=== PATIENT | male | born 1940 | race Hispanic/Latino ===

== ENCOUNTER 2021-04-23 08:05 | Outpatient (CLI) | payer MEDICARE, OTHER | END 2021-04-23 08:06 | disposition home or self-care (01) | LOC: BICMRI 08:05 | PROVIDERS: ATTEND Neurological Surgery | DX: M47.26 Other spondylosis with radiculopathy, lumbar region (principal); M48.061 Spinal stenosis, lumbar region without neurogenic claudication; M47.814 Spondylosis without myelopathy or radiculopathy, thoracic region; M43.16 Spondylolisthesis, lumbar region | CPT/HCPCS: 72148 ==

== ENCOUNTER 2021-06-10 13:58 | Emergency (ER) | payer MEDICARE, OTHER ==
[2021-06-10] MEDS ORDERED: Ketorolac Tromethamine 30 MG/ML VIAL ONE (15:07)
== END 2021-06-10 15:55 | disposition home or self-care (01) ==
LOC: ERS 13:58
DX: M54.41 Lumbago with sciatica, right side (principal); M25.551 Pain in right hip; G89.29 Other chronic pain; E11.9 Type 2 diabetes mellitus without complications; E78.5 Hyperlipidemia, unspecified; I10 Essential (primary) hypertension; Z79.899 Other long term (current) drug therapy; Z79.84 Long term (current) use of oral hypoglycemic drugs
CPT/HCPCS: 96372; 99283; J1885

== ENCOUNTER 2022-09-15 16:26 | Observation (INO) | payer MEDICARE, OTHER ==
[2022-09-15 16:48] LABS: #Basophils 0.1 thou/uL (0.0-0.2); #Eosinphils 1.6 thou/uL (0.0-0.7); #Lymphocytes 2.4 thou/uL (1.20-3.40); #Monocytes 0.6 thou/uL (0.11-0.59); #Neutrophils 5.7 thou/uL (1.40-6.50); %Basophils 0.5 % (0.0-1.0); %Eosinophils 15.1 % (0.0-10.0); %Lymphocytes 23.4 % (21.0-51.0); %Monocytes 6.2 % (0.0-10.0); %Neutrophils 54.8 % (42.0-75.0); Hemoglobin 13.7 g/dL (14.0-18.0); Mean Corpuscular HGB CONC 33.8 g/dL (32.0-36.0); Mean Corpuscular Hemoglobin 29.9 pg (27.0-31.0); Mean Corpuscular Volume 88.5 fl (78.0-98.0); Mean Platelet Volume 7.4 fL (7.4-10.4); Platelet Count 275 10x3/uL (130-400); RBC Distribution Width 11.3 % (11.5-14.5); Red Blood Cell (RBC) Count 4.59 mill/uL (4.70-6.10); White Blood Cell (WBC) Count 10.3 10x3/uL (4.8-10.8)
[2022-09-15] MEDS ORDERED: Aspirin 325 MG TAB ONE (16:57)
[2022-09-15 17:17] LABS: ALT (SGPT) 11 U/L (8-55); AST (SGOT) 17 U/L (5-34); Albumin 4.9 g/dL (3.4-4.8); Alkaline Phosphatase 109 U/L (40-110); Anion Gap 13 mmol/L (10-20); BUN (Urea Nitrogen) 14 mg/dL (8.4-25.7); Bilirubin, Total 0.5 mg/dL (0.2-1.2); Calc. Creatinine Clearance 0 mL/min (70-130); Calcium 9.8 mg/dL (7.8-10.44); Carbon Dioxide 27 mmol/L (23-31); Chloride 101 mmol/L (98-107); Estimated GFR 63; Globulin 3.7 g/dL (2.4-3.5); Glucose 130 mg/dL (83-110); Potassium 4.1 mmol/L (3.5-5.1); Protein, Total 8.6 g/dL (5.8-8.1); Sodium 137 mmol/L (136-145)
[2022-09-15] MEDS ORDERED: Dextrose 5% in Water 1,000 ML IV PRN (18:31)
[2022-09-15] MEDS ORDERED: Ondansetron PF 4 MG/2 ML Vial IVP PRN (18:31)
[2022-09-15] MEDS ORDERED: Acetaminophen 325 MG TAB PO PRN (18:31)
[2022-09-15] MEDS ORDERED: Insulin Regular 300 UNITS/3 ML VIAL SC PRN ×2 (18:31)
[2022-09-15] MEDS ORDERED: Dextrose 50% Abboject 50 ML SYRINGE SLOW IVP PRN (18:31)
[2022-09-15] MEDS ORDERED: Nitroglycerin 0.4 MG TAB (25 Tab Bottle) SL PRN (18:31)
[2022-09-15] MEDS ORDERED: Ondansetron ODT 4 MG TAB PO PRN (18:31)
[2022-09-15 19:04] LABS: Magnesium 1.7 mg/dL (1.6-2.6); Phosphorus 3.4 mg/dL (2.3-4.7)
[2022-09-15] MEDS ORDERED: Rosuvastatin 10 MG TAB PO SCH (21:00)
[2022-09-15 21:07] LABS: Troponin I 0.013 ng/mL (< 0.028)
[2022-09-15 21:23] VITALS: BMI 20.2
[2022-09-15] MEDS: Gabapentin 100 MG CAP PO SCH (21:44)
[2022-09-15 22:51] LABS: Troponin I 0.015 ng/mL (< 0.028)
[2022-09-16 04:53] LABS: #Eosinphils 1.4 thou/uL (0.0-0.7); #Lymphocytes 1.5 thou/uL (1.20-3.40); #Monocytes 0.6 thou/uL (0.11-0.59); #Neutrophils 5.6 thou/uL (1.40-6.50); %Basophils 0.3 % (0.0-1.0); %Eosinophils 14.9 % (0.0-10.0); %Lymphocytes 16.3 % (21.0-51.0); %Monocytes 6.6 % (0.0-10.0); %Neutrophils 61.9 % (42.0-75.0); Hemoglobin 11.8 g/dL (14.0-18.0); Mean Corpuscular HGB CONC 33.7 g/dL (32.0-36.0); Mean Corpuscular Hemoglobin 29.8 pg (27.0-31.0); Mean Corpuscular Volume 88.5 fl (78.0-98.0); Mean Platelet Volume 7.5 fL (7.4-10.4); Platelet Count 240 10x3/uL (130-400); RBC Distribution Width 11.2 % (11.5-14.5); Red Blood Cell (RBC) Count 3.98 mill/uL (4.70-6.10); White Blood Cell (WBC) Count 9.1 10x3/uL (4.8-10.8)
[2022-09-16 05:19] LABS: Anion Gap 10 mmol/L (10-20); BUN (Urea Nitrogen) 13 mg/dL (8.4-25.7); Calc. Creatinine Clearance 49 mL/min (70-130); Calcium 8.8 mg/dL (7.8-10.44); Carbon Dioxide 24 mmol/L (23-31); Cardiac Risk 2.6 (Less than 4.5); Chloride 105 mmol/L (98-107); Cholesterol 95 mg/dl (< 200 Desired); Estimated GFR 77; Glucose 128 mg/dL (83-110); HDL Cholesterol 37 mg/dL (>60 Neg Risk); LDL Cholesterol, Calculated 43 mg/dL; Sodium 135 mmol/L (136-145); Triglycerides 73 mg/dL (Less than 150)
[2022-09-16] MEDS ORDERED: Lisinopril/Hydrochlorothiazide 20 mg/12.5 mg Tablet PO SCH (09:00)
[2022-09-16] MEDS ORDERED: Aspirin Chewable 81 MG TAB PO SCH (09:00)
[2022-09-16] MEDS ORDERED: Finasteride 5 MG TAB PO SCH (09:00)
[2022-09-16] MEDS ORDERED: Tamsulosin HCl 0.4 MG CAP PO SCH (09:00)
[2022-09-16] MEDS: metFORMIN 500 MG TAB PO SCH ×2 (12:27→18:03)
[2022-09-16] MEDS: Gabapentin 100 MG CAP PO SCH (12:28)
[2022-09-16] MEDS ORDERED: ADENOSINE 60 MG/20 ML VIAL ONE (13:48)
[2022-09-16 16:38] VITALS: BP 136/68; TEMP 98.7
[2022-09-16] MEDS ORDERED: traMADol HCl 50 MG TAB PO PRN (16:39)
[2022-09-16] MEDS ORDERED: LACTASE 3000 UNIT PO PRN (16:39)
== END 2022-09-16 18:38 | disposition home or self-care (01) ==
LOC: ERS 16:26 → ERHOLD 17:45 → 2SW 20:34
PROVIDERS: ADMIT Family Medicine; ATTEND Nurse Practitioner Family
DX: R07.9 Chest pain, unspecified (principal); E11.42 Type 2 diabetes mellitus with diabetic polyneuropathy; I10 Essential (primary) hypertension; E78.5 Hyperlipidemia, unspecified; H61.23 Impacted cerumen, bilateral; I25.10 Atherosclerotic heart disease of native coronary artery without angina pectoris; G89.29 Other chronic pain; M54.50 Low back pain, unspecified; K52.9 Noninfective gastroenteritis and colitis, unspecified; H90.5 Unspecified sensorineural hearing loss; I34.0 Nonrheumatic mitral (valve) insufficiency; Z79.82 Long term (current) use of aspirin; Z79.84 Long term (current) use of oral hypoglycemic drugs; Z79.899 Other long term (current) drug therapy; Z88.8 Allergy status to other drugs, medicaments and biological substances; Z95.1 Presence of aortocoronary bypass graft; Z20.822 Contact with and (suspected) exposure to COVID-19
CPT/HCPCS: 71046; 78452; 80048; 80053; 80061; 82962 ×2; 83735; 83880; 84100; 84484 ×2; 85025 ×2; 93005; 93017; 93306; 94760 ×2; 99285; A9500; U0003; U0005; 36415; 36416; G0378; J0153

== ENCOUNTER 2023-04-26 10:01 | Outpatient (CLI) | payer MEDICARE, OTHER | END 2023-04-26 10:02 | disposition home or self-care (01) | LOC: BICMRI 10:01 | PROVIDERS: ATTEND Neurological Surgery | DX: M47.12 Other spondylosis with myelopathy, cervical region (principal); M43.16 Spondylolisthesis, lumbar region; M46.06 Spinal enthesopathy, lumbar region; M47.816 Spondylosis without myelopathy or radiculopathy, lumbar region; M51.36 Other intervertebral disc degeneration, lumbar region; M48.061 Spinal stenosis, lumbar region without neurogenic claudication; M25.78 Osteophyte, vertebrae; M24.28 Disorder of ligament, vertebrae; M51.37 Other intervertebral disc degeneration, lumbosacral region; M48.07 Spinal stenosis, lumbosacral region; M43.12 Spondylolisthesis, cervical region; M43.13 Spondylolisthesis, cervicothoracic region; M50.01 Cervical disc disorder with myelopathy, high cervical region; M48.02 Spinal stenosis, cervical region; M43.22 Fusion of spine, cervical region; M50.021 Cervical disc disorder at C4-C5 level with myelopathy; M50.022 Cervical disc disorder at C5-C6 level with myelopathy; M50.023 Cervical disc disorder at C6-C7 level with myelopathy; M50.83 Other cervical disc disorders, cervicothoracic region; M48.03 Spinal stenosis, cervicothoracic region; R90.89 Other abnormal findings on diagnostic imaging of central nervous system | CPT/HCPCS: 72141; 72148 ==

== ENCOUNTER 2023-08-08 13:12 | Outpatient (CLI) | payer MEDICARE, OTHER ==
[2023-08-08 15:07] LABS: Hematocrit 35.9 % (38.8-50.0); Mean Corpuscular HGB CONC 33.4 g/dL (32.0-36.0); Mean Corpuscular Hemoglobin 29.3 pg (27.0-33.0); Mean Corpuscular Volume 87.8 fl (81.2-95.1); Mean Platelet Volume 10.1 fl (7.4-10.4); Platelet Count 266 10x3/uL (150-450); RBC Distribution Width 12.1 % (11.5-14.5); Red Blood Cell (RBC) Count 4.09 10x6/uL (4.32-5.72); White Blood Cell (WBC) Count 8.9 10x3/uL (3.5-10.5)
[2023-08-08 15:17] LABS: Anion Gap 16 mmol/L (10-20); BUN (Urea Nitrogen) 17 mg/dL (8.4-25.7); Calc. Creatinine Clearance 0 mL/min (70-130); Calcium 9.2 mg/dL (7.8-10.44); Carbon Dioxide 25 mmol/L (23-31); Chloride 102 mmol/L (98-107); Estimated GFR 63; Glucose 131 mg/dL (83-110); Potassium 4.1 mmol/L (3.5-5.1); Sodium 139 mmol/L (136-145)
== END 2023-08-08 13:13 | disposition home or self-care (01) ==
LOC: LABBT 13:12
PROVIDERS: ATTEND Neurological Surgery
DX: Z01.818 Encounter for other preprocedural examination (principal)
CPT/HCPCS: 80048; 85027; 93005; 93010

== ENCOUNTER 2023-08-14 06:35 | Observation (INO) | payer MEDICARE, OTHER ==
[2023-08-08 13:11] VITALS: BMI 19.8
[2023-08-14] MEDS ORDERED: Vancomycin 1 GM VIAL ONE (06:37)
[2023-08-14] MEDS ORDERED: Promethazine 25 MG TAB PO PRN (06:56)
[2023-08-14] MEDS ORDERED: Ondansetron PF 4 MG/2 ML Vial IVP PRN (06:56)
[2023-08-14] MEDS ORDERED: Acetaminophen 325 MG TAB PO PRN (06:56)
[2023-08-14] MEDS ORDERED: Mag-Al 1200 mg/1200 mg/30 ML UDCUP PO PRN (06:56)
[2023-08-14] MEDS ORDERED: Cyclobenzaprine 10 MG TAB PO PRN (06:56)
[2023-08-14] MEDS ORDERED: Milk Of Magnesia 30 ML UDCUP PO PRN (06:56)
[2023-08-14] MEDS ORDERED: diphenhydrAMINE 50 MG/ML VIAL IVP PRN (06:56)
[2023-08-14] MEDS ORDERED: Morphine 2 MG/ML VIAL SLOW IVP PRN (06:56)
[2023-08-14] MEDS ORDERED: traMADol HCl 50 MG TAB PO PRN (06:56)
[2023-08-14] MEDS ORDERED: Dexamethasone 4 mg/ml Vial ONE (07:09)
[2023-08-14] MEDS ORDERED: fentaNYL PF 100 MCG/2 ML SYRINGE ONE (07:09)
[2023-08-14] MEDS ORDERED: Rocuronium Bromide 10 MG/ML (10ML VIAL) ONE ×2 (07:09→07:43)
[2023-08-14] MEDS ORDERED: PROPOFOL 20 ML ONE (07:09)
[2023-08-14] MEDS ORDERED: Lidocaine 2% PF 5 ML VIAL ONE (07:09)
[2023-08-14] MEDS ORDERED: CEFAZOLIN 2 GM VIAL ONE (07:23)
[2023-08-14] MEDS ORDERED: Sodium Chloride 0.9% 100 ML ONE (07:23)
[2023-08-14] MEDS ORDERED: SUGAMMADEX SODIUM 200 MG/2 ML VIAL ONE (07:25)
[2023-08-14] MEDS ORDERED: Dexamethasone 20 MG/5 ML VIAL ONE (07:43)
[2023-08-14] MEDS ORDERED: Ondansetron PF 4 MG/2 ML Vial ONE (07:43)
[2023-08-14] MEDS ORDERED: Lidocaine 1% PF 5 ML VIAL ONE (07:43)
[2023-08-14] MEDS ORDERED: PROPOFOL 200 MG/20 ML VIAL ONE (07:43)
[2023-08-14] MEDS ORDERED: HYDROmorphone 2 MG/ML VIAL SLOW IVP PRN (08:27)
[2023-08-14] MEDS ORDERED: Ondansetron HCl/PF 4 MG/2 ML Vial IVP PRN (08:27)
[2023-08-14] MEDS ORDERED: Promethazine HCl 25 MG/ML VIAL IM PRN (08:27)
[2023-08-14] MEDS ORDERED: fentaNYL 50 mcg/mL 1 mL Vial ONE ×3 (09:14→09:40)
[2023-08-14] MEDS: HYDROcodone/Acetaminophen 10/325 mg Tablet PO PRN ×3 (11:18→20:29)
[2023-08-14] MEDS: Sodium Chloride 0.9% 1,000 ML IV SCH ×2 (11:19→20:36)
[2023-08-14] MEDS: Lisinopril 20 MG TAB PO SCH (11:48)
[2023-08-14] MEDS: metFORMIN 500 MG TAB PO SCH ×2 (11:49→17:13)
[2023-08-14] MEDS: Finasteride 5 MG TAB PO SCH (11:49)
[2023-08-14] MEDS: Hydrochlorothiazide 25 MG TAB PO SCH (11:49)
[2023-08-14] MEDS: Gabapentin 100 MG CAP PO SCH ×2 (11:52→22:31)
[2023-08-14] MEDS: Tamsulosin HCl 0.4 MG CAP PO SCH (11:52)
[2023-08-14] MEDS: Carvedilol 6.25 MG TAB PO SCH ×2 (11:52→17:13)
[2023-08-14] MEDS ORDERED: hydrALAZINE 20 MG/ML VIAL SLOW IVP PRN (12:43)
[2023-08-14] MEDS ORDERED: Labetalol HCl 100 MG/20 ML VIAL SLOW IVP PRN (12:43)
[2023-08-14] MEDS: Colestipol 1 GM TAB PO SCH ×2 (13:41→22:32)
[2023-08-14] MEDS ORDERED: CEFAZOLIN 2 GM in Sodium Chloride 0.9% 100 ML IVPB SCH (16:00)
[2023-08-14] MEDS: CEFAZOLIN 2 GM in Sodium Chloride 0.9% 100 ML IVPB SCH (16:11)
[2023-08-15] MEDS: CEFAZOLIN 2 GM in Sodium Chloride 0.9% 100 ML IVPB SCH (00:24)
[2023-08-15] MEDS: HYDROcodone/Acetaminophen 10/325 mg Tablet PO PRN ×3 (05:32→16:53)
[2023-08-15] MEDS: Finasteride 5 MG TAB PO SCH (08:36)
[2023-08-15] MEDS: Gabapentin 100 MG CAP PO SCH (08:36)
[2023-08-15] MEDS: Lisinopril 20 MG TAB PO SCH (08:36)
[2023-08-15] MEDS: Tamsulosin HCl 0.4 MG CAP PO SCH (08:36)
[2023-08-15] MEDS: metFORMIN 500 MG TAB PO SCH ×2 (08:37→16:51)
[2023-08-15] MEDS: Hydrochlorothiazide 25 MG TAB PO SCH (08:37)
[2023-08-15] MEDS: Carvedilol 6.25 MG TAB PO SCH ×2 (08:38→16:51)
[2023-08-15] MEDS: Sodium Chloride 0.9% 1,000 ML IV SCH (08:40)
[2023-08-15] MEDS: Colestipol 1 GM TAB PO SCH (08:41)
[2023-08-15 20:10] VITALS: BP 164/68; TEMP 98.1
== END 2023-08-15 20:10 ==
LOC: SDC 06:35 → T4-B 10:04
PROVIDERS: ADMIT Neurological Surgery; ATTEND Neurological Surgery
PROC: 0SG0071 Fusion of Lumbar Vertebral Joint with Autologous Tissue Substitute, Posterior Approach, Posterior Column, Open Approach (ICD-10-PCS; principal; 2023-08-14)
DX: M43.16 Spondylolisthesis, lumbar region (principal); M48.061 Spinal stenosis, lumbar region without neurogenic claudication; I25.10 Atherosclerotic heart disease of native coronary artery without angina pectoris; I10 Essential (primary) hypertension; E78.5 Hyperlipidemia, unspecified; E11.9 Type 2 diabetes mellitus without complications
CPT/HCPCS: 20930; 20936; 22612; 22840; 63047; 97110; 97530; 97535; C1713 ×3; C1889 ×2; J3010; J1100; J2001; J2405; J2704; J3370; J3490; J7050

== ENCOUNTER 2023-08-16 19:49 | Emergency (ER) | payer MEDICARE, OTHER ==
[2023-08-16 20:59] LABS: #Basophils 0.1 thou/uL (0.0-0.2); #Eosinphils 0.4 thou/uL (0.0-0.7); #Monocytes 1.3 thou/uL (0.11-0.59); #Neutrophils 7.7 thou/uL (1.40-6.50); %Basophils 0.7 % (0.0-1.0); %Eosinophils 3.2 % (0.0-10.0); %Lymphocytes 15.9 % (21.0-51.0); %Monocytes 11.3 % (0.0-10.0); %Neutrophils 68.6 % (42.0-75.0); Hematocrit 31.3 % (42.0-52.0); Hemoglobin 10.6 g/dL (14.0-18.0); Mean Corpuscular HGB CONC 33.9 g/dL (32.0-36.0); Mean Corpuscular Hemoglobin 29.9 pg (27.0-31.0); Platelet Count 206 10x3/uL (130-400); RBC Distribution Width 12.1 % (11.5-14.5); Red Blood Cell (RBC) Count 3.54 mill/uL (4.70-6.10); White Blood Cell (WBC) Count 11.2 10x3/uL (4.8-10.8)
[2023-08-16 21:01] LABS: Mean Corpuscular Volume 88.4 fl (78.0-98.0)
[2023-08-16 21:22] LABS: ALT (SGPT) Less than 7 U/L (8-55); AST (SGOT) 22 U/L (5-34); Albumin 3.7 g/dL (3.4-4.8); Alkaline Phosphatase 51 U/L (40-110); Anion Gap 11 mmol/L (10-20); BUN (Urea Nitrogen) 24 mg/dL (8.4-25.7); Bilirubin, Total 0.5 mg/dL (0.2-1.2); Calc. Creatinine Clearance 0 mL/min (70-130); Calcium 8.8 mg/dL (7.8-10.44); Carbon Dioxide 24 mmol/L (23-31); Chloride 101 mmol/L (98-107); Estimated GFR 76; Globulin 3.1 g/dL (2.4-3.5); Glucose 137 mg/dL (83-110); Potassium 4.4 mmol/L (3.5-5.1); Protein, Total 6.8 g/dL (5.8-8.1); Sodium 132 mmol/L (136-145)
[2023-08-16] MEDS ORDERED: Lidocaine 2% 6 ML (Jelly) SYR TOP SCH (21:30)
[2023-08-16 23:22] LABS: Bacteria/HPF None Seen HPF (None Seen); Bilirubin Negative (Negative); Blood, Urine 1+ (Negative); CAUTI Indications for Culture Pelvic or flank pain; Clarity Clear (Clear); Glucose, Urine (Dipstick) Normal (Negative); Ketone, Urine Negative (Negative); Leukocyte Negative Leu/uL (Negative); Nitrite Negative (Negative); Protein, Urine (Dipstick) Negative (Neg-Trace); RBC/HPF 0-3 HPF (0-3); Specific Gravity, Urine 1.009 (1.002-1.036); Squamous Epithelial None Seen HPF (0-3); Urobilinogen Normal mg/dL (Less than 2); WBC/HPF 0-3 HPF (0-3); pH, Urine 5.5 (5.0-9.0)
[2023-08-16 23:23] LABS: Urine Culture Reflex No No
== END 2023-08-17 03:17 | disposition home or self-care (01) ==
LOC: ERS 19:49
DX: R33.9 Retention of urine, unspecified (principal); E11.9 Type 2 diabetes mellitus without complications; I10 Essential (primary) hypertension; E78.5 Hyperlipidemia, unspecified; I25.10 Atherosclerotic heart disease of native coronary artery without angina pectoris; Z79.899 Other long term (current) drug therapy; Z79.84 Long term (current) use of oral hypoglycemic drugs
CPT/HCPCS: 36415; 51702

== ENCOUNTER 2025-07-31 15:38 | Inpatient (IN) | payer MEDICARE, OTHER ==
[~2025-07-31 15:38] MED LIST: Iopamidol-370 76% 500 ML MDV (1 ML CHARGE) ONE
[2025-07-31 16:19] LABS: #Basophils 0.06 10x3/uL (0.0-0.2); #Eosinophils 0.92 10x3/uL (0.0-0.7); #Monocytes 0.74 10x3/uL (0.11-0.59); #Neutrophils 4.77 10x3/uL (1.40-6.50); %Basophils 0.7 % (0.0-1.0); %Eosinophils 11.1 % (0.0-10.0); %Lymphocytes 21.2 % (21.0-51.0); %Monocytes 9.0 % (0.0-10.0); %Neutrophils 57.8 % (42.0-75.0); Hematocrit 30.7 % (42.0-52.0); Hemoglobin 10.2 g/dL (14.0-18.0); Mean Corpuscular Hemoglobin 29.3 pg (27.0-31.0); Mean Corpuscular Volume 88.2 fL (78.0-98.0); Platelet Count 214 10x3/uL (130-400); Red Blood Cell (RBC) Count 3.48 mill/uL (4.70-6.10); White Blood Cell (WBC) Count 8.26 10x3/uL (4.8-10.8)
[2025-07-31 16:44] LABS: ALT (SGPT) 9 U/L (Less than 45); AST (SGOT) 16 U/L (11-34); Acetaminophen Less than 10 mcg/mL (Less than 10); Albumin 3.4 g/dL (3.1-4.5); Alkaline Phosphatase 60 U/L (40-110); Anion Gap 15 mmol/L (10-20); BUN (Urea Nitrogen) 21 mg/dL (8.4-25.7); Bilirubin, Total 0.4 mg/dL (0.3-1.2); Calc. Creatinine Clearance 0 mL/min (70-130); Calcium 8.3 mg/dL (7.8-10.44); Carbon Dioxide 20 mmol/L (23-31); Chloride 108 mmol/L (98-107); Globulin 2.8 g/dL (2.4-3.5); Glucose 98 mg/dL (83-110); Potassium 4.6 mmol/L (3.5-5.1); Salicylate Less than 8.0 mg/dL (Less than 8.0); Sodium 138 mmol/L (136-145)
[2025-07-31 16:46] LABS: PTT 28.9 sec (22.9-36.1)
[2025-07-31] MEDS ORDERED: Ondansetron PF 4 MG/2 ML Vial IVP PRN (17:03)
[2025-07-31] MEDS ORDERED: hydrALAZINE 20 MG/ML VIAL SLOW IVP PRN (17:05)
[2025-07-31] MEDS ORDERED: Electrolyte Replacement Protocol 1 EACH FS SCH (17:15)
[2025-07-31 17:18] LABS: INR-International Normal Ratio 1.3; Prothrombin Time 16.2 sec (12.0-14.7)
[2025-07-31] MEDS ORDERED: PHOS-NAK 1 PKT PACK PO PRN (17:30)
[2025-07-31] MEDS ORDERED: Magnesium 2 GM/50 ML(in water) 2 GM in Premix 1 BAG IVPB PRN (17:30)
[2025-07-31] MEDS ORDERED: Potassium Chloride 20 MEQ in Premix 1 BAG IVPB PRN (17:30)
[2025-07-31] MEDS ORDERED: Dextrose 50% Abboject 50 ML SYRINGE SLOW IVP PRN (18:07)
[2025-07-31] MEDS ORDERED: Glucagon 1 MG/ML KIT IM PRN (18:07)
[2025-07-31 18:25] LABS: Cocaine Metabolite Screen Negative (Negative); THC/Cannabinoid Screen Negative (Negative); Tricyclic Screen Negative (Negative)
[2025-07-31 18:48] VITALS: BMI 19.9
[2025-07-31] MEDS: D5 1/2 NS w/20 mEq KCL 1,000 ML IV SCH (22:51)
[2025-07-31] MEDS: Famotidine/PF 20 mg/2ml Vial SLOW IVP SCH (22:52)
[2025-08-01 04:14] LABS: #Basophils 0.07 10x3/uL (0.0-0.2); #Eosinophils 0.80 10x3/uL (0.0-0.7); #Monocytes 0.69 10x3/uL (0.11-0.59); #Neutrophils 5.83 10x3/uL (1.40-6.50); %Basophils 0.8 % (0.0-1.0); %Eosinophils 9.0 % (0.0-10.0); %Lymphocytes 16.3 % (21.0-51.0); %Monocytes 7.8 % (0.0-10.0); %Neutrophils 65.8 % (42.0-75.0); Hematocrit 32.3 % (42.0-52.0); Hemoglobin 10.5 g/dL (14.0-18.0); Mean Corpuscular Hemoglobin 28.8 pg (27.0-31.0); Mean Corpuscular Volume 88.7 fL (78.0-98.0); Platelet Count 204 10x3/uL (130-400); Red Blood Cell (RBC) Count 3.64 mill/uL (4.70-6.10); White Blood Cell (WBC) Count 8.87 10x3/uL (4.8-10.8)
[2025-08-01 04:26] LABS: ALT (SGPT) 8 U/L (Less than 45); AST (SGOT) 16 U/L (11-34); Albumin 3.6 g/dL (3.1-4.5); Alkaline Phosphatase 62 U/L (40-110); Anion Gap 11 mmol/L (10-20); BUN (Urea Nitrogen) 17 mg/dL (8.4-25.7); Bilirubin, Total 0.5 mg/dL (0.3-1.2); Calc. Creatinine Clearance 39 mL/min (70-130); Calcium 8.8 mg/dL (7.8-10.44); Carbon Dioxide 23 mmol/L (23-31); Cardiac Risk 2.4 (Less than 4.5); Chloride 108 mmol/L (98-107); Cholesterol 80 mg/dl (< 200 Desired); Globulin 3.0 g/dL (2.4-3.5); Glucose 151 mg/dL (83-110); HDL Cholesterol 34 mg/dL (>60 Neg Risk); LDL Cholesterol, Calculated 29 mg/dL; Potassium 4.0 mmol/L (3.5-5.1); Sodium 138 mmol/L (136-145); Triglycerides 85 mg/dL (Less than 150)
[2025-08-01] MEDS: Enoxaparin 40 MG (0.4 mL) SYRINGE SC SCH (11:33)
[2025-08-01 15:15] LABS: Bacteria/HPF None Seen HPF (None Seen); Glucose, Urine (Dipstick) Normal (Negative); RBC/HPF Greater than 50 HPF (0-3); Specific Gravity, Urine 1.013 (1.002-1.036); WBC/HPF Greater than 50 HPF (0-3)
[2025-08-01 15:29] LABS: Protein, Urine (Dipstick) Unable to Interpret mg/dL (Neg-Trace)
[2025-08-01 15:30] LABS: Leukocyte 500 Leu/uL (Negative)
[2025-08-02] MEDS: Aspirin 81 mg Enteric Coated Tablet PO SCH (09:31)
[2025-08-02] MEDS: Enoxaparin 30 MG (0.3 mL) SYRINGE SC SCH (09:31)
[2025-08-02] MEDS: Famotidine/PF 20 mg/2ml Vial SLOW IVP SCH (09:32)
[2025-08-03] MEDS: Carvedilol 6.25 MG TAB PO SCH (09:38)
[2025-08-03] MEDS: Lisinopril 20 MG TAB PO SCH (09:38)
[2025-08-03] MEDS: Finasteride 5 MG TAB PO SCH (09:38)
[2025-08-03 11:22] LABS: ALT (SGPT) Less than 7 U/L (Less than 45); AST (SGOT) 11 U/L (11-34); Albumin 3.3 g/dL (3.1-4.5); Alkaline Phosphatase 69 U/L (40-110); Anion Gap 13 mmol/L (10-20); BUN (Urea Nitrogen) 10 mg/dL (8.4-25.7); Bilirubin, Total 0.4 mg/dL (0.3-1.2); Calc. Creatinine Clearance 40 mL/min (70-130); Calcium 8.5 mg/dL (7.8-10.44); Carbon Dioxide 22 mmol/L (23-31); Chloride 111 mmol/L (98-107); Globulin 2.9 g/dL (2.4-3.5); Glucose 123 mg/dL (83-110); Potassium 4.1 mmol/L (3.5-5.1); Sodium 142 mmol/L (136-145)
[2025-08-03] MEDS: metFORMIN 500 MG TAB PO SCH (16:51)
[2025-08-05 07:14] LABS: #Basophils 0.05 10x3/uL (0.0-0.2); #Eosinophils 0.84 10x3/uL (0.0-0.7); #Monocytes 0.73 10x3/uL (0.11-0.59); #Neutrophils 5.65 10x3/uL (1.40-6.50); %Basophils 0.6 % (0.0-1.0); %Eosinophils 9.4 % (0.0-10.0); %Lymphocytes 18.3 % (21.0-51.0); %Monocytes 8.2 % (0.0-10.0); %Neutrophils 63.2 % (42.0-75.0); Hematocrit 28.6 % (42.0-52.0); Hemoglobin 9.6 g/dL (14.0-18.0); Mean Corpuscular Hemoglobin 29.8 pg (27.0-31.0); Mean Corpuscular Volume 88.8 fL (78.0-98.0); Platelet Count 212 10x3/uL (130-400); Red Blood Cell (RBC) Count 3.22 mill/uL (4.70-6.10); White Blood Cell (WBC) Count 8.94 10x3/uL (4.8-10.8)
[2025-08-05 07:28] LABS: Anion Gap 12 mmol/L (10-20); BUN (Urea Nitrogen) 18 mg/dL (8.4-25.7); Calc. Creatinine Clearance 45 mL/min (70-130); Calcium 8.6 mg/dL (7.8-10.44); Carbon Dioxide 22 mmol/L (23-31); Chloride 106 mmol/L (98-107); Glucose 144 mg/dL (83-110); Potassium 4.0 mmol/L (3.5-5.1); Sodium 136 mmol/L (136-145)
[2025-08-05 16:16] VITALS: BP 107/58; TEMP 97.4
== END 2025-08-05 19:34 | DRG 65 ==
LOC: ERS 15:38 → 2SE 17:03
PROVIDERS: ADMIT Family Medicine; ATTEND Hospitalist
PROC: 0T9B70Z Drainage of Bladder with Drainage Device, Via Natural or Artificial Opening (ICD-10-PCS; principal; 2025-08-01)
DX: I63.40 Cerebral infarction due to embolism of unspecified cerebral artery (principal); G81.94 Hemiplegia, unspecified affecting left nondominant side; E11.9 Type 2 diabetes mellitus without complications; I10 Essential (primary) hypertension; Z98.890 Other specified postprocedural states; E78.5 Hyperlipidemia, unspecified; Z95.1 Presence of aortocoronary bypass graft; Z79.899 Other long term (current) drug therapy; I65.22 Occlusion and stenosis of left carotid artery; I25.10 Atherosclerotic heart disease of native coronary artery without angina pectoris; D64.9 Anemia, unspecified; N40.0 Benign prostatic hyperplasia without lower urinary tract symptoms; R47.1 Dysarthria and anarthria; R13.12 Dysphagia, oropharyngeal phase; R33.9 Retention of urine, unspecified; R29.702 NIHSS score 2
CPT/HCPCS: 36415; 36416; 51701; 70450; 70496; 70498; 70551; 71045; 80048; 80053; 80061; 80306; 80307; 81001; 82607; 82746; 83036; 84484; 85025; 85610; 85730; 87086; 87389; 93005; 93306; J1308; J1650; J1815; J3480; Q9967